=== PATIENT | female | born 1990 ===

== ENCOUNTER → 2022-11-03 10:30 | Outpatient (BNVA) | payer SELFPAY | PROVIDERS: Visit Provider Physician Assistant Medical | DX: Z02.79 Encounter for issue of other medical certificate (principal) ==

== ENCOUNTER 2024-11-25 17:05 | Emergency (ER) | payer OTHER, SELFPAY ==
--- NOTE | 2024-11-25 17:38 | ED_ITS ---
HPI - General Adult General Chief complaint: Psychiatric Symptoms Stated complaint: si and hi from [facility] Time Seen by Provider: 11/25/24 17:37 Source: EMS Mode of arrival: EMS Limitations: other History of Present Illness ED Provider: Dr. Heaven Lewis HPI narrative: Patient comes to the emergency room via ambulance on a Section 12. According to EMS, the patient reported SI and HI with no plan. They reported possible PCP use. Patient is not giving any history, patient keeps saying ?I want to go home?. On arrival, patient refused to open her eyes, playing possum. With encouragement, patient open her eyes and got off the stretcher. Initially, patient a bit uncooperative with the exchange operator process. Related Data Home Medications ?Medication ?Instructions ?Recorded ?Confirmed bupropion HCl 200 mg tablet,12 hr 200 mg PO QAM 11/25/24 11/25/24 sustained-release clonazepam 1 mg tablet 1 mg PO DAILY PRN anxiety 11/25/24 11/25/24 ferrous sulfate 325 mg (65 mg 325 mg PO DAILY 11/25/24 11/25/24 iron) tablet (FeroSul) olanzapine 10 mg tablet 10 mg PO BEDTIME 11/25/24 11/25/24 vitamin with calcium 1 tab PO DAILY 11/25/24 11/25/24 no.72-iron 27 mg-folic acid 1 mg tablet (WesTab Plus) Allergies Allergy/AdvReac Type Severity Reaction Status Date / Time No Known Allergies Allergy Verified 11/25/24 18:05 Review of Systems 2 Review of Systems: Yes Other (Patient is Unwilling to talk) [facility] Social History Social History Advance Directives: No Advance Directives Information Provided: No Do you have a plan to hurt others: No Plan Physical Exam ED Vital Signs: Vital Signs - 24 hr 11/25/24 18:52 Temperature 98.1 F Pulse Rate 78 Respiratory Rate 20 Blood Pressure 151/100 H Pulse Oximetry 97 Oxygen Delivery Method Room Air BMI result Body Mass Index 25.6 Const Other: Appearance: Alert. No acute distress, uncooperative, the only thing she says is ?I want to go home Eyes: Pupils equal, round and reactive to light. ENT: Pharynx normal. Neck: Normal inspection. Neck supple. No lymph nodes noted. No crepitus CVS: Normal heart rate and rhythm. Pulses normal. Normal S1 and S2 Respiratory: No respiratory distress. Breath sounds normal. No Wheezing. No rales Abdomen: Soft and nontender. No rigidity. No distention. Skin: Skin warm and dry. Normal skin color. Normal skin turgor. Extremities: No lower extremity edema. No Lacerations. No Rash Neuro: No motor deficit. No sensory deficit. Moving all extremities. No slurred speech. CN 2 through 12 grossly intact Psych: calm, initially a bit uncooperative with the exchange operator process. Then followed directions. Still unwilling to talk Course Course Course Narrative: Patient came on a Section 12 Patient's hematology and chemistry does not show any acute abnormality, urinalysis negative for UTI, negative test, urine toxicology positive for PCP and marijuana Care team consult pending Physician observation started at 23:27 Medications Administered Discontinued Medications Generic Name Dose Route Start Last Admin Trade Name Freq PRN Reason Stop Dose Admin Diphenhydramine HCl 50 mg 11/25/24 17:54 11/25/24 19:10 Diphenhydramine Hcl 50 Mg/Ml Vial IM 11/25/24 17:55 Not Given ONCE ONE Haloperidol Lactate 10 mg 11/25/24 17:54 11/25/24 19:10 Haloperidol Lactate 5 Mg/Ml Vial IM 11/25/24 17:55 Not Given ONCE ONE Lorazepam 2 mg 11/25/24 17:54 11/25/24 19:10 Lorazepam 2 Mg/Ml Vial IM 11/25/24 17:55 Not Given ONCE ONE Medical Decision Making Differential Diagnosis Differential Diagnoses: The differential diagnosis associated with the presentation includes (Anxiety, depression, polysubstance abuse) Lab Data MDM Lab Attestation statement: I reviewed the patient's lab results. 11/25/24 19:56 11/25/24 19:56 Labs: Lab Results 11/25/24 Range/Units 19:56 WBC 7.2 (4.8-10.8) X10*3/uL RBC 5.45 (4.20-5.50) X10*6/uL Hgb 15.7 (12.0-16.0) g/dl Hct 45.6 (37.0-47.0) % MCV 83.7 (80.0-98.0) fL MCH 28.8 (27.0-33.0) pg MCHC 34.4 (31.0-35.0) g/dl RDW 12.9 (11.0-16.0) % Plt Count 166 (160-400) X10*3/uL MPV 10.8 (9.4-12.3) fL Immature Gran % (Auto) 0.1 (0.0-0.4) % Neut % (Auto) 56.2 (45-73) % Lymph % (Auto) 33.5 (20-40) % [place] % (Auto) 8.1 (2-11) % Eos % (Auto) 1.5 (0-4) % Baso % (Auto) 0.6 (0-2) % Lymph # (Auto) 2.4 (1.2-4.9) X10*3/uL [place] # (Auto) 0.6 (0.1-1.2) X10*3/uL Eos # (Auto) 0.1 (0.0-0.4) X10*3/uL Baso # (Auto) 0.0 (0.0-0.2) X10*3/uL Abs Immat Gran (auto) 0.01 (0.00-0.03) X10*3/uL Absolute Neuts (auto) 4.0 (2.0-8.3) x10*3/uL Absolute Nucleated RBC 0.000 (0.0-0.012) X10*3/uL Nucleated RBC % (auto) 0.0 (0.0-0.2) /100WBC Sodium 141 (135-145) mmol/L Potassium 3.5 (3.3-5.1) mmol/L Chloride 103 (96-108) mmol/L Carbon Dioxide 25 (22-29) mmol/L Anion Gap 17 (12-20) BUN 12 (9-16) mg/dL Creatinine 0.59 (0.5-1.4) mg/dL Estim Creat Clear Calc 117.6 Estimated GFR > 60 Random Glucose 108 (60-115) mg/dL Calcium 10.4 H (8.4-10.2) mg/dL Total Bilirubin 0.2 (0.0-1.0) mg/dL AST 22 (5-31) U/L ALT 34 H (0-31) U/L Alkaline Phosphatase 107 (39-117) U/L Total Protein 8.5 H (6.5-8.0) g/dL Albumin 5.0 (3.5-5.0) g/dL Urine Color Yellow Urine Appearance Cloudy Urine pH 6.0 (5.0-9.0) Ur Specific [place] 1.015 (1.005-1.025) Urine Protein Trace (Neg-Trace) mg/dL Urine Glucose (UA) Negative (Negative) mg/dL Urine Ketones Negative (Negative) mg/dL Urine Blood Large (3+) H (Negative) Urine Nitrite Negative (Negative) Ur Leukocyte Esterase Negative (Negative) Urine RBC 6-10 H (0-2) /HPF Urine WBC 0-5 (0-5) /HPF Ur Squamous Epith Cells 3-5 (0-2) /HPF Urine Bacteria 1+ (None Seen) Hyaline Casts 0-2 (0-2) /LPF Urine Test NEGATIVE (NEGATIVE) Salicylates < 5.0 L (15-30) mg/dL Urine Opiates Screen Not Detected (Not Detect) Ur Buprenorphine Scrn Not Detected (Not Detect) ng/mL Ur Oxycodone Screen Not Detected (Not Detect) ng/mL Urine Methadone Screen Not Detected (Not Detect) ng/mL Urine Fentanyl Screen Not Detected (Not Detect) Acetaminophen < 3 (<30) mcg/mL Ur Barbiturates Screen Not Detected (Not Detect) Ur Phencyclidine Scrn POSITIVE H (Not Detect) Ur Amphetamines Screen Not Detected (Not Detect) U Benzodiazepines Scrn Not Detected (Not Detect) Urine Cocaine Screen Not Detected (Not Detect) U Marijuana (THC) Screen POSITIVE H (Not Detect) Ethyl Alcohol < 10 mg/dL Critical Care Time Critical Care Time Critical Care Time: Yes Total Critical Care Time: 35 Attestation: I have personally provided critical care time. Time includes review of lab data, radiology results, discussion with consultants, and monitoring for potential decompensation. Intervention performed as documented. Discharge Plan Discharge Clinical Impression: Polysubstance abuse, Suicidal ideation Patient Disposition: Still a Patient Prescriptions: No Action clonazepam 1 mg tablet 1 mg PO DAILY PRN (Reason: anxiety) olanzapine 10 mg tablet 10 mg PO BEDTIME ferrous sulfate [FeroSul] 325 mg (65 mg iron) tablet 325 mg PO DAILY bupropion HCl 200 mg tablet sustained-release 12 hr 200 mg PO QA WesTab Plus 27 mg iron- 1 mg tablet 1 tab PO DAILY Print Language: Chinese
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
[2024-11-25 17:58] VITALS: BP 140/98; PULSE 100; O2SAT 94
[2024-11-25 18:04] VITALS: BMI 25.6
--- NOTE | 2024-11-25 18:09 | PC.NURSE ---
pt very resistant to exchange trouble shooter process. took this nurse, Dr. White, and several security officers to persuade pt to changeover process. Verbal orders were placed for IM medications 10mg haldol, 2mg ativan, 50mg benedryl. After discussion, pt was amenable to changing and taking off her jewelry. At this time pt is calm. At this time medications held
--- NOTE | 2024-11-25 18:13 | MHC.EDTECH ---
This tech attempted to obtain vital signs from patient. Patient told this tech I want my phone, give me my phone. This tech stated that I could not give her her phone and explained the process for intake, and stated that additionally we would require blood work and urine sample. Patient told this tech to fuck off and go away. RN aware.
[2024-11-25 18:52] VITALS: BP 151/100; PULSE 78; RESP 20; TEMP 36.7; O2SAT 97
--- NOTE | 2024-11-25 19:10 | MHC.EDTECH ---
Patient has two nipple rings, nose ring, and belly ring on person. Okay per RN. Patient also has two rings on hand that are not able to come off. Okay per RN.
--- NOTE | 2024-11-25 19:10 | PC.NURSE ---
at time of shift change pt has not needed IM medications. medications charted against.
--- NOTE | 2024-11-25 19:25 | PC.NURSE ---
DCF at bedside
[2024-11-25 20:07] LABS: MANUAL DIFF FLAG NO
[2024-11-25 20:10] LABS: Appearance Urine Cloudy; Basophils Percent Auto 0.6 % (0-2); Color Urine Yellow; Eosinophils Absolute Auto 0.1 X10*3/uL (0.0-0.4); Eosinophils Percent Auto 1.5 % (0-4); Glucose Urine UA Negative (Negative); Hematocrit 45.6 % (37.0-47.0); Hemoglobin 15.7 g/dl (12.0-16.0); Imm Gran Abs Auto 0.01 X10*3/uL (0.00-0.03); Imm Gran Pct Auto 0.1 % (0.0-0.4); Leukocyte Esterase Urine Negative (Negative); Lymphocytes Absolute Auto 2.4 X10*3/uL (1.2-4.9); Lymphocytes Percent Auto 33.5 % (20-40); Mean Corpuscular HGB Conc 34.4 g/dl (31.0-35.0); Mean Corpuscular Hemoglobin 28.8 pg (27.0-33.0); Mean Corpuscular Volume 83.7 fL (80.0-98.0); Mean Platelet Volume 10.8 fL (9.4-12.3); Monocytes Absolute Auto 0.6 X10*3/uL (0.1-1.2); Monocytes Percent Auto 8.1 % (2-11); Neutrophils Percent Auto 56.2 % (45-73); Nitrite Urine Negative (Negative); Platelet Count 166 X10*3/uL (160-400); Red Blood Count 5.45 X10*6/uL (4.20-5.50); Red Cell Distribution Width 12.9 % (11.0-16.0); Specific Gravity - Urine 1.015 (1.005-1.025); UMIC TRIGGER UACC YES; Urine Blood Large (3+) (Negative); Urine Ketones Negative (Negative); Urine Protein Trace mg/dL (Neg-Trace); White Blood Count 7.2 X10*3/uL (4.8-10.8)
[2024-11-25 20:11] LABS: UPreg QC Valid YES; Urine Pregnancy NEGATIVE (NEGATIVE)
[2024-11-25 20:15] LABS: Bacteria Urine 1+ (None Seen); Hyaline Casts Urine 0-2 /LPF (0-2); WBC Urine 0-5 /HPF (0-5)
[2024-11-25 20:21] LABS: Amphetamine Screen Urine Not Detected (Not Detect); Barbiturates, Urine Not Detected (Not Detect); Benzodiazepines Screen Urine Not Detected (Not Detect); Buprenorphine Scr Not Detected (Not Detect); Cannabinoid Screen Urine POSITIVE (Not Detect); Cocaine Screen Urine Not Detected (Not Detect); Fentanyl, urine Not Detected (Not Detect); Methadone Screen, Urine Not Detected (Not Detect); Opiate Screen Urine Not Detected (Not Detect); Oxycodone Screen Urine Not Detected (Not Detect); Phencyclidine Screen Urine POSITIVE (Not Detect)
[2024-11-25 20:30] LABS: Acetaminophen LAB < 3 mcg/mL (<30); Alanine Aminotransferase 34 U/L (0-31); Alkaline Phosphatase 107 U/L (39-117); Anion Gap 17 (12-20); Aspartate Amino Transferase 22 U/L (5-31); Bilirubin Total 0.2 mg/dL (0.0-1.0); Blood Urea Nitrogen 12 mg/dL (9-16); Calcium 10.4 mg/dL (8.4-10.2); Carbon Dioxide 25 mmol/L (22-29); Chloride 103 mmol/L (96-108); Creatinine Clr Calc Pharmacy 117.6; Estimated Glomerular Filt Rate > 60; Ethanol < 10 mg/dL; Glucose Random 108 mg/dL (60-115); Potassium 3.5 mmol/L (3.3-5.1); Salicylate < 5.0 mg/dL (15-30); Sodium 141 mmol/L (135-145); Total Protein 8.5 g/dL (6.5-8.0)
[2024-11-26 06:37] VITALS: BP 142/108; PULSE 83; RESP 17; TEMP 36.4; O2SAT 99
--- NOTE | 2024-11-26 08:41 | PHA.MEDREC ---
Pharmacy Consult ? Medication Reconciliation Pharmacy has completed the medication reconciliation. Reviewed med rec done by nursing (Shelly).
--- NOTE | 2024-11-26 08:50 | PC.NURSE ---
Addendum entered by Jacinta Alejo RN 11/26/24 09:12: this note was written by Jacinta Alejo RN. computer mistake on correct RN account Original Note: patient was given permission by this RN to get numbers out of personal cell phone, this RN monitored use of personal cell phone, cell phone placed by in [facility] [address] in patient belonging bag.
--- NOTE | 2024-11-26 09:12 | PC.NURSE ---
assumed care of patient at 0700, aprox 0745 patient came out of her room yelling and swearing at staff that she did not like what was on her breakfast tray. patient was given other alternative options and patient kept yelling at staff she wants real food patient would not elaborate on what kind of food she wanted so we could assist her in getting something she likes. patient then became belligerent demanding her personal items to leave and asking staff to call the police. patient educated on care team process and that she has to wait to be evaluated. patient disruptive to unit, calling people on unit names. patient educated on appropriate pod behavior.
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
--- NOTE | 2024-11-26 09:17 | MHC.CARE ---
Per [facility], they suspect pt may be , taking vitamins
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
[2024-11-26] MEDS: OLANZapine 10 MG TABLET PO (09:38)
[2024-11-26] MEDS: clonazePAM 1 MG TABLET PO ×2 (09:38→10:04)
[2024-11-26] MEDS: buPROPion HCl XL 150 MG TAB.ER.24H PO (10:04)
[2024-11-26] MEDS: Multivitamin TABLET 1 TAB PO (11:54)
[2024-11-26] MEDS: Ferrous Sulfate 324 MG TABLET.DR PO (11:55)
[2024-11-26] MEDS: guaiFENesin DM 100/10/5 ML 5 ML SYRUP PO (11:55)
--- NOTE | 2024-11-26 12:08 | PC.NURSE ---
patient appears to be more calm, patient can be demanding and needs redirection at times. patient keeps asking for real food but is unable to be specific regarding what she wants so we can help her. patient medicated per MAR.
--- NOTE | 2024-11-26 12:33 | MHC.CARE ---
patient is in review at [facility], contact is Shlomo [phone]
--- NOTE | 2024-11-26 12:52 | PC.NURSE ---
patient has male visitor. visitor brought patient sealed chips, 2 sealed soda can and sealed frozen dinner. patient requested pot pie to be heated up. this rn heated up pot pie and gave to patient with safety spoon. patient visitor in chair in patient room brought in by security
--- NOTE | 2024-11-26 14:01 | MHC.EDTECH ---
pt visitor brought non-perishable snacks for pt, all snacks are labeled and placed with remaining belongings in [facility] port closet room 3, some pepsis placed in pt fridge. security pre-checked bag of food before arrival to pod
[2024-11-26 15:00] VITALS: PULSE 89; RESP 16; O2SAT 99
--- NOTE | 2024-11-26 15:06 | PC.NURSE ---
patient report given to EMS, patient calm and cooperative for ems transfer. belongings given to ems
== END 2024-11-26 15:09 ==
PROVIDERS: Emergency Provider Emergency Medicine
DX: F33.1 Major depressive disorder, recurrent, moderate (principal); F16.10 Hallucinogen abuse, uncomplicated; R45.851 Suicidal ideations; R45.850 Homicidal ideations; Z71.51 Drug abuse counseling and surveillance of drug abuser; Z79.899 Other long term (current) drug therapy; Z51.81 Encounter for therapeutic drug level monitoring
CPT/HCPCS: 36415; 80053; 80143; 80179; 80307; 81001; 81025; 85025; 99284; S9485